=== PATIENT | male | born 1970 | race Caucasian/White ===

== ENCOUNTER → 2020-11-24 09:17 | Outpatient (CLI) | payer OTHER, SELFPAY ==
[2020-11-25 17:33] LABS: SARS-CoV-2 RNA PCR Positive
== END ==
PROVIDERS: PCP Internal Medicine; Visit Provider Internal Medicine
DX: Z20.822 Contact with and (suspected) exposure to COVID-19 (principal)
CPT/HCPCS: C9803; U0003; U0005